=== PATIENT | male | born 2000 | race Hispanic/Latino ===

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

== ENCOUNTER 2022-04-01 16:17 | Emergency (ER) | payer MEDICAID ==
[~2022-04-01] VITALS: Ht 180.3 cm; Wt 116.6 kg
[2022-04-01 16:19] VITALS: BP 142/76
[2022-04-01] MEDS ORDERED: ONDA4TAB10 PO (17:00)
[2022-04-01] MEDS ORDERED: ACET-66 PO (17:00)
[2022-04-01] MEDS ORDERED: IBUP-2070 PO (17:00)
[2022-04-01] MEDS ORDERED: IBUPROFEN 600 MG TABLET PO ONE (17:00)
[2022-04-01] MEDS ORDERED: AZIT500T2 PO (17:00)
[2022-04-01] MEDS ORDERED: ONDANSETRON ODT 4MG TAB SL ONE (17:00)
[2022-04-01] MEDS ORDERED: GUAIF10 PO (17:00)
== END 2022-04-01 17:14 | disposition home or self-care (01) ==
LOC: EDH 16:17
DX: U07.1 COVID-19 (principal)
CPT/HCPCS: 87635; 87804 ×2; 99283; C9803